=== PATIENT | female | born 1990 | race African-American/Black ===

== ENCOUNTER 2019-07-12 13:35 | Emergency (ER) | payer MEDICAID, OTHER ==
[~2019-07-12] VITALS: Ht 147.3 cm; Wt 90.7 kg
[2019-07-12 13:40] VITALS: BP 118/73
[2019-07-12] MEDS ORDERED: HYDROcodone-ACET 10/325MG TAB PO ONE (14:30)
[2019-07-12 14:50] LABS: Basophils # (auto) 0 uL; Basophils % (auto) 0.6 % (0.0-2.0); Eosinophils # (auto) 0.1 uL; Eosinophils % (auto) 2.8 % (0.0-7.0); Hematocrit 39.5 % (36.0-46.0); Hemoglobin 13.3 g/dL (12.2-16.2); Lymphocytes # (auto) 1.4 uL; Lymphocytes % (auto) 31.4 % (10.0-50.0); Mean Corpuscular Hemoglobin 27.8 pg (28.0-32.0); Mean Corpuscular Hgb Conc. 33.7 g/dL (32.0-36.0); Mean Corpuscular Volume 82.5 fL (80.0-100.0); Monocytes # (auto) 0.2 uL; Monocytes % (auto) 4.9 % (0.0-12.0); Neutrophils # (auto) 2.7 uL; Neutrophils % (auto) 60.3 % (37.0-80.0); Platelet Count (auto) 324 10^3/uL (140-450); Red Blood Cells 4.79 10^6/uL (4.0-5.20); Red Cell Distribution Width 16.1 % (11.8-14.3); White Blood Cell 4.5 10^3/uL (4.4-10.8)
[2019-07-12 15:04] LABS: Albumin 3.7 g/dL (3.4-5.0); Calcium 9.4 mg/dL (8.5-10.1); Potassium 4.1 mmol/L (3.5-5.1)
[2019-07-12 15:08] LABS: BUN/Creatinine Ratio 18.1; Bilirubin, Total 0.3 mg/dL (0.2-1.0); Total Protein 8.1 g/dL (6.4-8.2)
== END 2019-07-12 16:20 | disposition home or self-care (01) ==
LOC: ER 13:35
DX: R51 Headache (principal); H53.8 Other visual disturbances; J45.909 Unspecified asthma, uncomplicated
CPT/HCPCS: 36415; 70450; 80053; 85025